=== PATIENT | female | born 1980 | race Two or more races ===

== ENCOUNTER 2023-02-04 11:03 | Inpatient (IN) | payer OTHER ==
[~2023-02-04] VITALS: Ht 175.3 cm; Wt 69.9 kg
[2023-02-04] MEDS ORDERED: TOPROL XL100 M1 PO (13:54)
[2023-02-04] MEDS ORDERED: DIOVAN160 M1 PO (13:54)
[2023-02-09] MEDS ORDERED: IBUPROFEN800 MG PO (07:38)
[2023-02-09] MEDS ORDERED: GABAPENTIN300 MG PO (07:38)
== END 2023-02-09 09:19 | disposition home or self-care (01) | DRG 743 ==
LOC: O/R 02-07 08:01 → OB/GYN 02-07 08:01
PROVIDERS: ADMIT Obstetrics & Gynecology Gynecology; ATTEND Obstetrics & Gynecology Gynecology
PROC: 0UT70ZZ Resection of Bilateral Fallopian Tubes, Open Approach (ICD-10-PCS; 2023-02-07)
PROC: 0UT90ZZ Resection of Uterus, Open Approach (ICD-10-PCS; principal; 2023-02-07 16:00)
DX: D25.1 Intramural leiomyoma of uterus (principal); D25.2 Subserosal leiomyoma of uterus; D25.0 Submucous leiomyoma of uterus; N84.0 Polyp of corpus uteri; Z20.822 Contact with and (suspected) exposure to COVID-19